=== PATIENT | male | born 1960 | race Caucasian/White ===

== ENCOUNTER 2019-06-27 22:26 | Emergency (ER) | payer BC ==
[~2019-06-27] VITALS: Ht 165.1 cm; Wt 98.1 kg
[2019-06-27] MEDS ORDERED: METF500T17 PO (22:35)
[2019-06-27] MEDS ORDERED: SODIUM CHLORIDE FLUSH 10ML SYR IVF ONE (23:00)
[2019-06-27 23:11] LABS: BASOPHILS # (AUTO) 0.02 x10^3/uL (0-0.1); BASOPHILS % (AUTO) 0 % (0-1); EOSINOPHILS # (AUTO) 0.17 x10^3/uL (0-0.4); EOSINOPHILS % (AUTO) 3 % (1-7); LYMPHOCYTES # (AUTO) 2.56 x10^3/uL (1-3.4); LYMPHOCYTES % (AUTO) 38 % (22-44); MD NO; MEAN CORPUSCULAR HEMOGLOBIN 33.2 pg (27.5-34.5); MEAN CORPUSCULAR HGB CONC 33.8 g/dL (33.2-36.2); MEAN CORPUSCULAR VOLUME 98.2 fL (81-97); MEAN PLATELET VOLUME 8.3 fL (7.4-10.4); MONOCYTES # (AUTO) 0.62 x10^3/uL (0.2-0.8); MONOCYTES % (AUTO) 9 % (2-9); NEUTROPHILS # (AUTO) 3.38 x10^3/uL (1.8-6.8); NEUTROPHILS % (AUTO) 50 % (42-75); PLATELET COUNT 191 x10^3/uL (130-400); RED BLOOD COUNT 4.88 x10^6/uL (4.38-5.82); RED CELL DISTRIBUTION WIDTH 13.8 % (9.4-14.8)
[2019-06-27 23:17] LABS: ALANINE AMINOTRANSFERASE 45 U/L (12-78); ALBUMIN 3.6 g/dL (3.4-5.0); ANION GAP 8 mmol/L (5-15); CALCIUM 8.7 mg/dL (8.5-10.1); CHLORIDE 108 mmol/L (98-107); CREATININE 0.78 mg/dL (0.7-1.3)
[2019-06-27 23:21] LABS: ALKALINE PHOSPHATASE 78 U/L (45-117); BILIRUBIN,TOTAL 0.7 mg/dL (0.2-1.0); T4 (THYROXINE) 7.9 mcg/dL (4.5-12.1); TOTAL PROTEIN 7.5 g/dL (6.4-8.2); TROPONIN I < 0.015 ng/mL (0.000-0.045)
[2019-06-27 23:49] LABS: MICROSCOPIC NOT IND
--- NOTE | 2019-06-27 23:51 | NUR ---
PT RESTING IN BED WITH FAMILY AT PT SIDE, A/O X4 AND SPEAKING FULL SENTENCES.
[2019-06-27 23:52] LABS: CULTURE INDICATED? NO
[2019-06-28 01:32] VITALS: BP 123/60
== END 2019-06-28 01:35 | disposition home or self-care (01) ==
LOC: ED 23:41
DX: R20.2 Paresthesia of skin (principal); R53.1 Weakness; T67.3XXA Heat exhaustion, anhydrotic, initial encounter; E11.9 Type 2 diabetes mellitus without complications; Z87.891 Personal history of nicotine dependence; X58.XXXA Exposure to other specified factors, initial encounter; Y93.89 Activity, other specified; Y92.89 Other specified places as the place of occurrence of the external cause; Y99.8 Other external cause status
CPT/HCPCS: 36415; 70450; 71045; 80053; 81003; 83735; 84436; 84443; 84484; 85025; 93005; 99284

== ENCOUNTER 2020-02-13 00:40 | Emergency (ER) | payer BC ==
[~2020-02-13] VITALS: Ht 165.1 cm; Wt 95.9 kg
[~2020-02-13 00:40] MED LIST: METF500T17 PO
[2020-02-13] MEDS ORDERED: [UNRECOGNIZED DRUG - REMARK] (00:50)
[2020-02-13] MEDS ORDERED: SODIUM CHLORIDE FLUSH 10ML SYR IVF ONE (01:00)
[2020-02-13] MEDS ORDERED: ONDANSETRON 2MG/ML, 2ML ONE (01:12)
[2020-02-13] MEDS ORDERED: MORPHINE SULFATE 4 MG/ML, 1ML ONE (01:12)
[2020-02-13 01:17] LABS: BASOPHILS # (AUTO) 0.05 x10^3/uL (0-0.1); BASOPHILS % (AUTO) 1 % (0-1); EOSINOPHILS # (AUTO) 0.14 x10^3/uL (0-0.4); EOSINOPHILS % (AUTO) 2 % (1-7); LYMPHOCYTES % (AUTO) 33 % (22-44); MD NO; MEAN CORPUSCULAR HEMOGLOBIN 32.5 pg (27.5-34.5); MEAN CORPUSCULAR HGB CONC 34.8 g/dL (33.2-36.2); MEAN CORPUSCULAR VOLUME 93.3 fL (81-97); MEAN PLATELET VOLUME 7.8 fL (7.4-10.4); MONOCYTES # (AUTO) 0.71 x10^3/uL (0.2-0.8); MONOCYTES % (AUTO) 9 % (2-9); NEUTROPHILS # (AUTO) 4.35 x10^3/uL (1.8-6.8); NEUTROPHILS % (AUTO) 55 % (42-75); PLATELET COUNT 207 x10^3/uL (130-400); RED BLOOD COUNT 5.06 x10^6/uL (4.38-5.82); RED CELL DISTRIBUTION WIDTH 13.4 % (9.4-14.8)
--- NOTE | 2020-02-13 01:22 | NUR ---
Pt alert and resting on gurney. Pt in gown and on monitors. PIV placed by outboard technician. Pt medicated per JAN. Pt given call light. VSS.
[2020-02-13 01:26] LABS: ALANINE AMINOTRANSFERASE 38 U/L (12-78); ALBUMIN 3.7 g/dL (3.4-5.0); ANION GAP 5 mmol/L (5-15); CALCIUM 8.7 mg/dL (8.5-10.1); CHLORIDE 111 mmol/L (98-107); CREATININE 0.71 mg/dL (0.7-1.3)
[2020-02-13] MEDS ORDERED: MORPHINE SULFATE 4 MG/ML, 1ML IVPush PRN (01:30)
[2020-02-13] MEDS ORDERED: ONDANSETRON 2MG/ML, 2ML IVPush ONE (01:30)
[2020-02-13] MEDS ORDERED: SODIUM CHLORIDE 0.9% 1,000ML IVBOLUS ONE (01:30)
[2020-02-13 01:31] LABS: ALKALINE PHOSPHATASE 99 U/L (45-117); BILIRUBIN,TOTAL 0.6 mg/dL (0.2-1.0); TOTAL PROTEIN 7.6 g/dL (6.4-8.2); TROPONIN I < 0.015 ng/mL (0.000-0.045)
--- NOTE | 2020-02-13 01:50 | NUR ---
Pt to CT
[2020-02-13 02:12] VITALS: BP 130/80
--- NOTE | 2020-02-13 02:19 | NUR ---
Pt back from CT. Pt reports improvement in pain and declined offer for more pain meds. VSS stable. No needs at this time. Call light in place.
--- NOTE | 2020-02-13 02:48 | NUR ---
Pt d/c'd to self care. Pt alert, oriented and ambulatory. Pt educated on prescriptions, OTC meds, follow-up, home care and S/Sx to return. Pt VU. Pt ambulated out of ER.
[2020-02-13] MEDS ORDERED: OMNIPAQUE 350 MG/ML, 100ML BOTTLE ONE (05:55)
== END 2020-02-13 02:51 | disposition home or self-care (01) ==
LOC: ED 02:40
DX: K21.0 Gastro-esophageal reflux disease with esophagitis (principal); K29.00 Acute gastritis without bleeding; K44.9 Diaphragmatic hernia without obstruction or gangrene; R91.1 Solitary pulmonary nodule; E11.9 Type 2 diabetes mellitus without complications
CPT/HCPCS: 36415; 71045; 74177; 80053; 83690; 84484; 85025; 93005; 96361; 96374; 96375; 99285; J2270; J2405; J7030; Q9967